=== PATIENT | female | born 1965 | race Caucasian/White ===

== ENCOUNTER 2018-04-13 05:42 | Day surgery (SDC) | payer MEDICARE, MEDICAID ==
[~2018-04-13] VITALS: Ht 157.5 cm; Wt 104.3 kg
[~2018-04-13 05:42] MED LIST: AMLO5TAB88 PO; CHOL200059 PO; GABA-529 PO; IBUP-1636 PO; LISI1TAB13 PO; MELO-104 PO; TRAM50TA PO
[2018-04-13] MEDS ORDERED: LOSA-20 PO (06:30)
[2018-04-13] MEDS ORDERED: LACTATED RINGERS 1,000 ML IV SCH (06:40)
[2018-04-13] MEDS ORDERED: BACITRACIN 50,000 UNITS/VIAL ONE (06:59)
[2018-04-13] MEDS ORDERED: BUPIVACAINE HCL/PF 0.5% (5MG/ML) 10ML ONE (06:59)
[2018-04-13] MEDS ORDERED: NORMAL SALINE 0.9% 10 ML SYR ONE (06:59)
[2018-04-13] MEDS ORDERED: BACITRACIN 15GM TUBE TOP ONE (06:59)
[2018-04-13] MEDS ORDERED: SKIN ADHESIVE 0.7 GM EA TOP ONE (07:00)
[2018-04-13 07:02] LABS: UCG SCREEN NEGATIVE
[2018-04-13] MEDS ORDERED: PROPOFOL 200MG/20ML VIAL IV ONE (07:38)
[2018-04-13] MEDS ORDERED: SODIUM CHLORIDE 0.9% 10ML VIAL ONE (07:39)
[2018-04-13] MEDS ORDERED: LIDOCAINE HCL/PF 1% 10 MG/ML 5ML VIAL ONE (07:39)
[2018-04-13] MEDS ORDERED: CEFAZOLIN SODIUM 1000MG/VIAL ONE (07:39)
[2018-04-13] MEDS ORDERED: FENTANYL CITRATE/PF 50MCG/ML 2ML VIAL ONE ×2 (07:39→08:42)
[2018-04-13] MEDS ORDERED: MIDAZOLAM HCL 2 MG/2 ML VIAL ONE (07:39)
[2018-04-13] MEDS ORDERED: DEXAMETHASONE 4MG/ML 1ML VIAL ONE (07:39)
[2018-04-13] MEDS ORDERED: KETOROLAC 30MG/ML VIAL ONE (07:40)
[2018-04-13] MEDS ORDERED: METOCLOPRAMIDE HCL 10MG/2ML VIAL ONE (07:40)
[2018-04-13] MEDS ORDERED: ONDANSETRON HCL 4MG/2ML INJ ONE (07:40)
[2018-04-13] MEDS ORDERED: LABETALOL HCL 5MG/ML VIAL 20ML IV ONE (08:44)
[2018-04-13] MEDS ORDERED: MORPHINE SULFATE 4 MG/ML CPJ (NOT FOR IM USE) IV PRN (09:30)
[2018-04-13] MEDS ORDERED: ONDANSETRON HCL 4MG/2ML INJ IV PRN (09:30)
[2018-04-13] MEDS ORDERED: FENTANYL CITRATE/PF 50MCG/ML 2ML VIAL IV PRN (09:30)
[2018-04-13] MEDS ORDERED: MEPERIDINE HCL/PF 25MG/ML CPJ IV PRN (09:30)
[2018-04-13] MEDS ORDERED: HYDROMORPHONE HCL/PF 2MG/ML CPJ IV PRN (09:30)
[2018-04-13] MEDS ORDERED: HYDROCODONE/ACETAMINOPHEN 10/325MG TABLET PO PRN (10:00)
[2018-04-13] MEDS ORDERED: HYDROCORTISONE SOD SUCCINATE 100 MG/2 ML VIAL ONE (11:35)
== END 2018-04-13 12:45 | disposition home or self-care (01) ==
LOC: OR 05:42
PROVIDERS: ATTEND Orthopaedic Surgery
DX: G56.01 Carpal tunnel syndrome, right upper limb (principal); M65.351 Trigger finger, right little finger; I10 Essential (primary) hypertension; Z79.899 Other long term (current) drug therapy; Z79.1 Long term (current) use of non-steroidal anti-inflammatories (NSAID); Z98.890 Other specified postprocedural states; Z72.89 Other problems related to lifestyle
CPT/HCPCS: 26055; 64721; 81025; A4216; J0690; J1100; J1720; J1885; J2250; J2405; J2765; J3010; J3490; A4565; J2704; J7120